=== PATIENT | female | born 1960 | race Caucasian/White ===

== ENCOUNTER 2016-10-25 10:15 | Emergency (ER) | payer OTHER ==
[~2016-10-25] VITALS: Ht 149.9 cm; Wt 76.4 kg
[~2016-10-25 10:15] MED LIST: BG MC; ECO81 PO; GLU500 PO; PRI20 PO
[2016-10-25 15:01] VITALS: BP 120/80
== END 2016-10-25 15:01 | disposition home or self-care (01) ==
LOC: ED 10:15
DX: M25.551 Pain in right hip (principal); E11.9 Type 2 diabetes mellitus without complications; Z79.84 Long term (current) use of oral hypoglycemic drugs; Z88.2 Allergy status to sulfonamides
CPT/HCPCS: 36415; Q0092

== ENCOUNTER 2019-06-30 22:32 | Inpatient (IN) | payer BC ==
[~2019-06-30] VITALS: Ht 144.8 cm; Wt 72.6 kg
[2019-06-30 22:40] VITALS: Ht 144.8 cm; Wt 72.6 kg
--- NOTE | 2019-06-30 22:53 | NUR ---
PATIENT CAME TO ED ROOM 8 FROM TRIAGE C/O LEFT BUTTOCK PAIN. PATIENT EXPLAINS THAT SHE BELIEVES IT IS A "CYST THAT HAS BEEN GOING ON FOR 6 MONTHS." PATIENT EXPLAINED THAT THE "PAIN NEVER REALLY GOES AWAY." PATIENT STATED THAT SHE "PULLED A MUSCLE INITIALLY AND HAD SCIATIC NERVE PAIN." PATIENT STATED SHE WENT TO THE ER IN THE PAST TO BE SEEN, BUT THE "MEDICATIONS DID NOT HELP." PATIENT TOOK A MOTRIN 600 MG BY MOUTH AT 1 PM TODAY PRIOR TO COMING TO THE ED. PATIENT EXPLAINED SHE HAD BEEN CONSTIPATED SINCE TODAY BECAUSE OF THE PAIN MEDICINE. PATIENT DENIES ANY OTHER PAIN, DROWSINESS, OR SHORTNESS OF BREATH. PATIENT HAS PMH OF DIABETES. DR. RAMOS AT BEDSIDE TO MSE PATIENT.
[2019-06-30 23:42] LABS: CALCIUM 9.3 mg/dL (8.5-10.1); CARBON DIOXIDE 25.9 mmol/L (21-32); CHLORIDE SERUM 102 mmol/L (98-107); CREATININE SERUM 0.7 mg/dL (0.6-1.0); GFR1 > 60 mL/min; GLUCOSE SERUM 331 mg/dL (74-106); POTASSIUM SERUM 4.1 mmol/L (3.5-5.1); SODIUM SERUM 139 mmol/L (136-145)
[2019-06-30 23:51] LABS: BASOPHIL % 0.9 % (0-2); PLATELET COUNT 184 x10^3mcL (130-400); RED CELL DISTRIBUTION WIDTH 12.9 % (11.5-14.5)
--- NOTE | 2019-07-01 01:41 | NUR ---
PATIENT EXPLAINED THAT SHE LOST HER INSURANCE AND SHE HAS BEEN OFF "DIABETIC MEDICATIONS FOR YEARS." PATIENT USED TO TAKE METFORMIN, BUT IT "MADE HER SICK AND THAT WAS WHEN SHE HAD INSURANCE."
[2019-07-01 02:16] LABS: microscopic required? NO
[2019-07-01 02:34] LABS: urine erythrocyte NEGATIVE (NEGATIVE)
--- NOTE | 2019-07-01 02:34 | NUR ---
PATIENT ARRIVED FROM ER IN WHEELCHAIR, ADMITTED FOR LEFT BUTTOCK MASS AND POORLY CONTROLLED DIABETES. PATIENT RESTING IN BED, A/O X4, VERBALLY RESPONSIVE, DENIES DIZZINESS. BREATHING EVEN AND UNLABORED, ON ROOM AIR, DENIES SOB. ABD SOFT AND ROUND, ACTIVE BOWEL SOUNDS. NO EDEMA NOTED. NON-ELEVATED MASS IN LEFT BUTTOCK, SKIN SITE DRY AND INTACT, NO DRAINAGE OR DISCOLORATION. 20G IV LFA INTACT, FLUSHED AND SALINE LOCKED. STATED PAIN LEVEL 3/10 IN LEFT HIP AND LEFT LEG, STATED THAT IT IS TOLERABLE AT THIS TIME, REFUSED PAIN MEDICATION PRN PER EMAR. ORIENTED TO DEVICES AND ENVIRONMENT. CALL LIGHT WITHIN REACH, BED IN LOWEST POSITION, WILL CONTINUE TO MONITOR.
[2019-07-01 02:58] LABS: AMPHETAMINE QUAL UR NONE DETECTED (See below)
--- NOTE | 2019-07-01 02:58 | NUR ---
REPORT GIVEN TO RENNY BRAY FOR CONTINUITY OF CARE. PATIENT MADE AWARE.
[2019-07-01 03:24] VITALS: BP 142/79
--- NOTE | 2019-07-01 03:59 | NUR ---
PERFORMED ACCUCHECK, BS 267 MG/DL. GAVE LANTUS 10 U SUBQ ONE TIME, AND GAVE HALF A SANDWICH FOR SNACK.
[2019-07-01 04:13] VITALS: BP 142/79
[2019-07-01 06:09] VITALS: BP 137/74
--- NOTE | 2019-07-01 06:10 | NUR ---
PATIENT RESTING IN BED. REPORTS MILD PAIN TO LEFT LEG BUT TOLERABLE AT THIS TIME. DENIED PAIN MEDICATION. BS 254. DR. BERGER MADE AWARE. ORDERED TO HOLD A.M SLIDING SCALE D/T PT RECEIVING LANTUS EARLIER. STARTED PT ON NS RUNNING AT 70ML/HR. BED AT LOWEST POSITION. CALL LIGHT WITHIN REACH, WILL ENDORSE TO DAY NURSE.
--- NOTE | 2019-07-01 07:30 | NUR ---
PATIENT IS A&OX4, FOLLOWS COMMANDS AND COOPERATES WELL. MEDSURG PATIENT, DENIES CHEST PAIN. PERIPHERAL PULSES PALPABLE W/ NO SIGNS OF EDEMA. LUNG SOUNDS CTA BILATERALLY, ON RA, O2 SAT 97%, DENIES SOB. NORMOACTIVE BSX4, ABD SOFT AND ROUND. VOIDS USING RESTROOM. AMBULATORY. LEFT BUTTOCK MASS - NON ELEVATED, NO SIGNS OF ERYTHEMA, DRAINAGE OR DISCOLORATION AT THIS TIME. DENIES PAIN AT THIS TIME. IV SITE IS CDI. WILL CONTINUE TO MONITOR.
[2019-07-01 09:27] VITALS: BP 131/75
--- NOTE | 2019-07-01 10:27 | NUR ---
PER DR. BECK, EXPLAINED TO PATIENT THE REASON TO BE NPO. ALL QUESTIONS AND CONCERNS HAVE BEEN ADDRESSED AT THIS TIME. WILL CONTINUE TO MONITOR.
--- NOTE | 2019-07-01 10:49 | NUR ---
DR. BECK ASSESSED AND VISITED PATIENT. NOTIFIED RN THAT SHE WILL CALL OR AND SEE IF THEY WILL BE AVAILABLE FOR A PROCEDURE TOMORROW. IF SO, PATIENT IS TO BE NPO AT MIDNIGHT TONIGHT. NO FURTHER ORDERS AT THIS TIME.
--- NOTE | 2019-07-01 15:13 | NUR ---
PATIENT SIGNED INFORMED CONSENT. PATIENT DENIES ANY DISCOMFORT OR DISTRESS WHEN SIGNING THE CONSENT. ALL QUESTIONS AND CONCERNS WERE ALREADY ADDRESSED BY MD. WILL CONTINUE TO MONITOR.
[2019-07-01 17:28] VITALS: BP 121/76
--- NOTE | 2019-07-01 19:12 | NUR ---
PATIENTIS CURRENTLY RESTING AT THIS TIME. PATIENT DENIES ANY DISCOMFORT OR PAIN. WILL CONTINUE TO MONITOR AND ENDORSE TO INSIDE SALES COORDINATOR NURSE.
--- NOTE | 2019-07-01 19:25 | NUR ---
RECEIVED PATIENT FROM DAY NURSE. MED/SURG PATIENT. PATIENT RESTING IN BED, A/O X4, VERBALLY RESPONSIVE, DENIES DIZZINESS. BREATHING EVEN AND UNLABORED, ON ROOM AIR, DENIES SOB. ABD SOFT AND ROUND. NO EDEMA NOTED. IV LAC INTACT AND INFUSING NS @ 70ML/HR. STATED PAIN LEVEL 4/10 IN L HIP AND LEG, REFUSED PAIN MEDICATION PRN PER EMAR AT THIS TIME. PATIENT SCHEDULED FOR EXCISIONAL BIOPSY OF LEFT BUTTOCK MASS, TOMORROW, TO BE NPO AFTER MIDNIGHT, PATIENT VERBALIZED UNDERSTANDING. CALL LIGHT WITHIN REACH, BED IN LOWEST POSITION. WILL CONTINUE TO MONITOR.
[2019-07-01 20:42] VITALS: BP 138/74
--- NOTE | 2019-07-01 23:10 | NUR ---
REQUESTED DR. BERGER TO SIGN CONSENT FOR BLOOD TRANSFUSION, FOR POSSIBLE BLOOD TRANSFUSION FOR SURGERY SCHEDULED TODAY. SHE DID NOT SIGN IT. WILL ENDORSE TO DAY NURSE.
--- NOTE | 2019-07-02 | NUR ---
PATIENT RESTING IN BED, WITH EYES CLOSED. EVEN CHEST RISE AND FALL. SHOWS NO SIGN OF PAIN OR DISTRESS. CURRENTLY ON NPO STATUS IN PREPARATION FOR SURGERY TODAY. CALL LIGHT WITHIN REACH, BED IN LOWEST POSITION. WILL CONTINUE TO MONITOR.
[2019-07-02 05:52] VITALS: BP 138/71
--- NOTE | 2019-07-02 06:16 | NUR ---
PATIENT RESTING IN BED, BREATHING EVEN AND UNLABORED, DENIES SOB. C/O OF PAIN LEVEL 4/10 IN LEFT HIP AND LEG PAIN, GAVE NORCO PRN PER EMAR. SURGERY CHECKLIST COMPLETED AND PLACED IN CHART, NPO STATUS MAINTAINED SINCE MIDNIGHT IN PREPARATION FOR SURGERY TODAY, PREOP BATH PERFORMED, GAVE NEW PATIENT GOWN, UNDERWEAR AND DENTURE CONTAINER. WILL ENDORSE TO DAY NURSE. CALL LIGHT WITHIN REACH AND SAFETY PRECAUTIONS MAINTAINED THROUGHOUT SHIFT.
[2019-07-02 07:11] LABS: BASOPHIL % 0.7 % (0-2); PLATELET COUNT 172 x10^3mcL (130-400); RED CELL DISTRIBUTION WIDTH 12.6 % (11.5-14.5)
[2019-07-02 07:36] VITALS: BP 132/70
--- NOTE | 2019-07-02 07:38 | NUR ---
RECEIVED AWAKE, ALERT AND ORIENTED. IN NO ACUTE RESP. DISTRESS. VS WNL. IVF INFUSING WELL AND SITE CLEAR. NO C/O PAIN OR DISCOMFORT AT THIS TIME. CALL LIGHT WITHIN REACH. WILL CONTINUE WITH PLAN OF CARE.
[2019-07-02 08:57] LABS: CALCIUM 8.6 mg/dL (8.5-10.1); CARBON DIOXIDE 23.9 mmol/L (21-32); CHLORIDE SERUM 107 mmol/L (98-107); CREATININE SERUM 0.6 mg/dL (0.6-1.0); GFR1 > 60 mL/min; GLUCOSE SERUM 137 mg/dL (74-106); POTASSIUM SERUM 3.7 mmol/L (3.5-5.1); SODIUM SERUM 142 mmol/L (136-145)
[2019-07-02 09:47] LABS: MAGNESIUM 1.9 mg/dL (1.8-2.4); PHOSPHOROUS 3.7 mg/dL (2.5-4.9)
--- NOTE | 2019-07-02 10:05 | NUR ---
PT LEFT TO OR IN NO DISTRESS, AWAKE AND ALERT. NO CHANGES IN VS. NO C/O PAIN OR DISCOMFORT.
[2019-07-02 12:05] VITALS: BP 115/60
--- NOTE | 2019-07-02 12:06 | NUR ---
PT BACK FROM OR IN NO ACUTE RESP. DISTRESS. DOSING ON AND OFF. VS STABLE. IVF INFUSING WELL AND SITE CLEAR. INCISION SITE WITH 4X4 DRESSING INTACT. CALL LIGHT WITHIN REACH. WILL CONTINUE TO MONITOR.
--- NOTE | 2019-07-02 14:09 | NUR ---
C/O PAIN TO LT HIP. NORCO GIVEN.
[2019-07-02 17:16] VITALS: BP 121/71
--- NOTE | 2019-07-02 18:37 | NUR ---
REMAINS IN NO DISTRESS, AWAKE AND ALERT. NO CHANGES IN VS. NO C/O PAIN AT THIS TIME. INCISION SITE WITH DRESSING INTACT. IVF INFUSING WELL AND SITE CLEAR. CALL LIGHT WITHIN REACH. WILL BE ENDORSED TO INCOMING SHIFT.
[2019-07-02 19:25] VITALS: BP 146/85
--- NOTE | 2019-07-02 20:00 | NUR ---
RECEIVED PT IN BED, RESTING QUIETLY. A/O X4. DENIES HEADACHE/DIZZINESS. RESP. EVEN AND UNLABORED. ON ROOM AIR, NO ACUTE DISTRESS NOTED. AFEBRILE AND VITAL SIGNS STABLE. IVF , NS AT 70ML/HR, INTACT AND INFUSING WELL VIA LFA, SITE CLEAR. DRESSING TO LT BUTTOCK, DRY AND INTACT. ABLE TO REPOSITION SELF. AMBULATORY. CALL LIGHT WITHIN REACH. WILL CONTINUE TO MONITOR.
--- NOTE | 2019-07-02 22:20 | NUR ---
PT COMPLAINED OF LT HIP/BUTTOCK PAIN, 5/10, MEDICATED WITH NORCO PER EMAR WITH RELIEF. PT RESTING QUIETLY IN BED AT THIS TIME.
--- NOTE | 2019-07-02 22:34 | NUR ---
IV SITE INFILTRATED, DISCONT. PT REFUSING IV RE-INSERTION. DR BERGER MADE AWARE. NO IV ACCESS AT THIS TIME.PT STATES SHE IS KOSTAS. ORAL FLUID VERY WELL AND DOES NOT NEED IVF. WILL CONTINUE TO MONITOR.
--- NOTE | 2019-07-03 01:01 | NUR ---
RESTING QUIETLY IN BED, WITH EYES CLOSED, APPEARS ASLEEP, EASILY AROUSABLE. RESP. EVEN AND UNLABORED. ON ROOM AIR, NO ACUTE DISTRESS NOTED. CALL LIGHT WITHIN REACH. WILL CONTINUE TO MONITOR.
[2019-07-03 05:01] VITALS: BP 127/74
--- NOTE | 2019-07-03 05:45 | NUR ---
SLEPT WELL. NO COMPLAINTS NOTED AT THIS TIME. LT BUTTOCK DRESSING DRY AND INTACT. DUE MEDS GIVEN ORDERED, KOSTAS. WELL. AFEBRILE AND VITAL SIGNS STABLE. RESP. EVEN AND UNLABORED. NO ACUTE DISTRESS NOTED. WILL CONTINUE TO MONITOR.
[2019-07-03 07:18] LABS: BASOPHIL % 0.3 % (0-2); PLATELET COUNT 181 x10^3mcL (130-400); RED CELL DISTRIBUTION WIDTH 13.2 % (11.5-14.5)
[2019-07-03 07:28] LABS: CALCIUM 8.5 mg/dL (8.5-10.1); CARBON DIOXIDE 25.5 mmol/L (21-32); CHLORIDE SERUM 106 mmol/L (98-107); CREATININE SERUM 0.6 mg/dL (0.6-1.0); GFR1 > 60 mL/min; GLUCOSE SERUM 151 mg/dL (74-106); MAGNESIUM 1.9 mg/dL (1.8-2.4); PHOSPHOROUS 3.5 mg/dL (2.5-4.9); POTASSIUM SERUM 4.1 mmol/L (3.5-5.1); SODIUM SERUM 140 mmol/L (136-145)
--- NOTE | 2019-07-03 07:30 | NUR ---
RECEIVED PT LYING IN BED A/A. BREATHING EQUAL/UNLABORED ON RA. NO ACUTE PAIN/DISTRESS. PT HAS NO IV ACCESS, PREVIOUS NURSE MADE MD AWARE. DRESSING TO L. BUTTOCKS, CDI. BED IN LOW POSITION, CALL LIGHT IN REACH, SAFETY PRECAUTIONS IN PLACE. WILL CONTINUE TO MONITOR
[2019-07-03 07:49] VITALS: BP 141/75
[2019-07-03 10:35] VITALS: BP 141/75
[2019-07-03 11:19] VITALS: BP 140/79
--- NOTE | 2019-07-03 11:30 | NUR ---
PT SITTING UP IN BED A/A. BREATHING EQUAL/UNLABORED ON RA. NO ACUTE PAIN/DISTRESS. NO IV ACCESS, MD AWARE. DRESSING TO L. BUTTOCK, CDI. DISCHARGE INSTRUCTIONS/EDUCATION, F/U APPT, AND NEW RX DISCUSSED WITH PT, PT VERBALIZED UNDERSTANDING. ALL QUESTIONS/CONCERNS ADDRESSED. PT IS CURRENTLY WAITING FOR HER RIDE AT THIS TIME. WILL CONTINUE TO MONITOR
[2019-07-03] MEDS ORDERED: BLOOD LANCETS1 EACH TOP (12:47)
[2019-07-03] MEDS ORDERED: GLUCOSE TEST S1 EACH MC (12:47)
[2019-07-03] MEDS ORDERED: ACCU-CHEK GUID1 EAC3 MC (12:47)
[2019-07-03] MEDS ORDERED: EASY COMFORT ALCO70% TOP (12:47)
--- NOTE | 2019-07-03 12:50 | NUR ---
PT STATED SHE DOES NOT HAVE A GLUCOSE MONITOR AT HOME. STAFF DEVELOPMENT MANAGER MARY MADE AWARE AND SHE ADDED NEW RX FOR GLUCOSE MONITOR, STRIPS, AND LANCETS. DISCUSSED WITH PT, PT VERBALIED UNDERSTANDING
--- NOTE | 2019-07-03 13:52 | NUR ---
PT DISCHARGED HOME A/A, ORIENTED X4, BREATHING EQUAL/UNLABORED ON RA. PT WAS GIVEN NORCO FOR L. BUTTOCKS PAIN. PT HAS A RIDE HOME. PT BROUGHT DOWN TO LOBBY VIA W/C, ACCOMPANIED BY MODEL SET ARTIST. ALL BELONGINGS WITH PT
== END 2019-07-03 13:50 | disposition home or self-care (01) | DRG 572 ==
LOC: ED 22:32 → MU 07-01 01:50
PROVIDERS: Specialist; Surgery; ADMIT Student in an Organized Health Care Education/Training Program
PROC: 0JBM0ZZ Excision of Left Upper Leg Subcutaneous Tissue and Fascia, Open Approach (ICD-10-PCS; principal; 2019-07-02 10:30)
DX: D17.24 Benign lipomatous neoplasm of skin and subcutaneous tissue of left leg (principal); E11.65 Type 2 diabetes mellitus with hyperglycemia; Z79.82 Long term (current) use of aspirin; Z79.84 Long term (current) use of oral hypoglycemic drugs; Z83.3 Family history of diabetes mellitus; Z82.3 Family history of stroke; Z82.49 Family history of ischemic heart disease and other diseases of the circulatory system; Z88.2 Allergy status to sulfonamides
CPT/HCPCS: 82962; G0378; J0690; J1815; J1885; J2405; J2704; J3010; J3490; J7030; Q0092

== ENCOUNTER 2019-07-24 12:39 | Emergency (ER) | payer BC ==
[~2019-07-24] VITALS: Ht 144.8 cm; Wt 73.5 kg
[~2019-07-24 12:39] MED LIST changes: +ACCU-CHEK GUID1 EAC3 MC; +BLOOD LANCETS1 EACH TOP; +EASY COMFORT ALCO70% TOP; +GLUCOSE TEST S1 EACH MC
[2019-07-24 12:51] VITALS: Ht 144.8 cm; Wt 73.5 kg
[2019-07-24] MEDS ORDERED: ZANAFLEX CAPSULE4 MG PO (14:23)
[2019-07-24] MEDS ORDERED: MELOXICAM15 M1 PO (14:24)
[2019-07-24 14:55] VITALS: BP 156/82
== END 2019-07-24 14:55 | disposition home or self-care (01) ==
LOC: ED 12:39
DX: M54.42 Lumbago with sciatica, left side (principal); E11.9 Type 2 diabetes mellitus without complications; Z88.2 Allergy status to sulfonamides; T16.2XXA Foreign body in left ear, initial encounter; W45.8XXA Other foreign body or object entering through skin, initial encounter; Y93.89 Activity, other specified; Y92.89 Other specified places as the place of occurrence of the external cause; Y99.8 Other external cause status
CPT/HCPCS: J1885; Q0092